=== PATIENT | male | born 1985 | race African-American/Black ===

== ENCOUNTER 2017-07-07 22:07 | Emergency (ER) | payer MEDICARE, MEDICAID ==
[2017-07-08] MEDS ORDERED: HYDROcodone/Acetaminophen 10/325 mg Tablet ONE (02:45)
--- NOTE | 2017-07-08 09:01 | RAD ---
LUMBAR SPINE 3 VIEWS: HISTORY: Low back pain. Fall. Trauma. COMPARISON: Lumbar spine radiograph 05/23/17. FINDINGS: There is fusion of the enlarged L5 transverse processes of the sacrum. No acute fracture or malalignment. Mild degenerative disk space height loss at L4-5. Right upper quadrant surgical clips are present. IMPRESSION: Lumbosacral transitional vertebra. No acute fracture or malalignment. POS: CORINE
--- OUTSIDE RECORDS SUMMARY | 2017-07-11 11:40 | XMS | Summary of Care ---
:1985 Author Name RENETTA ALISA Address Unavailable Unavailable , Care Team Providers Name Role Phone GHULAM MADDOX Unavailable Unavailable YONI ORTIZ Unavailable Unavailable ALISA JACKSON Unavailable Unavailable , Unavailable Unavailable Functional Status Functional Status Health Issues Name Dates Details Functional status health issues are not documented Status: Cognitive Status Health Issues Name Dates Details Cognitive status health issues are not documented Status: Problems Name Dates Details Depression screening(V79.0, Z13.89) Status:Active Depression with suicidal ideation(311, F32.9) Status:Active Localized swelling, mass and lump, head(784.2, R22.0) Status:Active Depression(311, F32.9) Status:Active Annual physical exam(V70.0, Z00.00) Status:Active HIV positive(V08, Z21) Status:Active Acute sinusitis(461.9, J01.90) Status:Active Allergic rhinitis(477.9, J30.9) Status:Active Headache(784.0, R51) Status:Active Medications Name Dates Details Stribild TABS Refills:0 ActiveBromfed DM 30-2-10 MG/5ML Oral Syrup TAKE 5 ML EVERY 4 TO 6 HOURS NEEDED. Quantity:1 Refills:0 YONI ORTIZ N.PMag [id number]-Ujv-5749 [id number] ML Bottle Sertraline HCl - 50 MG Oral Tablet take one tab in the morning for two weeks, then increase to one and one half tabs in the morning. Quantity:45 Refills:2 GHULAM MADDOX M.D. Dsqvdew2-Thta-6772 ActiveAmoxicillin-Pot Clavulanate 875-125 MG Oral Tablet TAKE 1 TABLET EVERY 12 HOURS WITH MEALS UNTIL GONE. Quantity:14 Refills:0 ALISA JACKSON M.D. Kbzgqvu4-Ibh-9978 ActiveLevocetirizine Dihydrochloride 5 MG Oral Tablet TAKE 1 TABLET DAILY IN THE EVENING. Quantity:30 Refills:5 ALISA JACKSON M.D. Kvljyqc8-Sgm-8886 Active Allergies and Adverse Reactions Name Dates Details Bactrim TABS Status:Active clindamycin Status:Active Doxycycline Monohydrate CAPS Status:Active Past Medical History Name Dates Details History of Ear infection(382.9, H66.90) Status:Resolved History of Otitis, right(382.9, H66.91) Status:Resolved History of Productive cough(786.2, R05) Status:Resolved No pertinent past medical history Status:Resolved Procedures Procedure Dates Details History of Gallbladder Surgery History of Kidney Surgery Laparoscopic Radical Nephrectomy [QH] DRUG SCREEN,COMPREHENSIVE (URINE) Ordered:19-Dec-2016 [QL] VITAMIN D, 25-HYDROXY, LC/MS/MS Ordered:19-Dec-2016 [Q] RESPIRATORY ALLERGY PROFILE REGION X Ordered:19-Dec-2016 [QH] HIV 1 RNA, QUANTITATIVE REAL TIME PCR Ordered:19-Dec-2016 [Q] HIV-1 GENOTYPE Ordered:19-Dec-2016 Immunization Name Dates Details Immunizations not documented Family History Mother Name Dates Details No pertinent family history Status:Active Social History Name Dates Details - Smoking StatusCurrent every day smoker Vital Signs Date Test Result Details 19-Dec-2016 10:08 BP Systolic 97mm[Hg] Status: BP Diastolic 65mm[Hg] Status: Temperature 98.3f Status: Heart Rate 85/min Status: Physical Findings 14 Status:Comments:Respiration Height 74in Status: Weight 141lb Status: Body Mass Index Calculated 18.1kg/m2 Status: Body Surface Area Calculated 1.87m2 Status: Physical Findings 100 Status:Comments:O2 Saturation Results Date Description Value Details 19-Dec-2016 [QLH] CBC (INCLUDES 11:15 DIFF/PLT) White Blood Cell 4.1 K/CMM Range: 3.7-10.4 Red Blood Cell 4.19 M/CMM (Below Range: 4.70-6.10 low threshold) Hemoglobin 12.7 g/dl (Below Range: 14.0-18.0 low threshold) Hematocrit 39.4 % (Below low Range: 42.0-54.0 threshold) Mean Cell Volume 93.9 fL Range: 80.0-94.0 Mean Cell Hemoglobin 30.3 pg Range: 27.0-31.0 Mean Cell Hemoglobin 32.3 g/dl Range: 32.0-36.0 Concentration (for H&H) Red Cell Diameter Width 13.4 % Range: 11.5-14.5 Platelet 113 K/CMM (Below Range: 133-450 low threshold) Mean Platelet Volume 10.3 fL Range: 7.4-10.4 11:15 [QLH] Differential Segmented Neutrophils 51.3 % Range: 45.0-75.0 Monocytes 8.6 % Range: 2.0-12.0 Lymphocytes 38.0 % Range: 20.0-40.0 Eosinophils 1.7 % Range: 0.0-4.0 Basophils 0.4 % Range: 0.0-1.0 Segs-Bands # 2.1 K/CMM Range: 1.5-8.1 Lymphocytes # 1.6 K/CMM Range: 1.0-5.5 Monocytes # 0.4 K/CMM Range: 0.0-0.8 Eosinophils # 0.1 K/CMM Range: 0.0-0.5 11:15 [[facility]] HEPATITIS PANEL Hepatitis B Surface Negative Range: Negative Antigen Hepatitis B Core IgM Negative Range: Negative Hepatitis C Antibody Negative Hepatitis A IgM Negative Range: Negative 11:15 [QLH] VITAMIN B12 Vitamin B12 Level 592 pg/ml Range: 254-1320 11:15 [QL] TSH, 3RD GENERATION W/REFLEX TO FT4 TSH 1.310 uIU/ml Range: 0.360-3.740 11:15 [QL] CMP W/EGFR Sodium Level 142 mEq/l Range: 135-145 Potassium Level 3.7 mEq/l Range: 3.5-5.1 Chloride Level 108 mEq/l Range: 95-109 Carbon Dioxide 27 mEq/l Range: 24-32 AGAP 10.7 mEq/l Range: 10.0-20.0 Glucose Level 78 mg/dl Range: 70-99 Comments:Adult reference range values reflect the clinical guidelinesof the [place] [employer]. Creatinine Lvl 0.90 mg/dl Range: 0.50-1.40 Blood Urea Nitrogen 9 mg/dl Range: 7-22 BUN/Creatinine Ratio 10 Range: 6-25 Total Protein 7.8 g/dl Range: 6.4-8.4 Albumin Lvl 4.3 g/dl Range: 3.5-5.0 Globulin 3.5 g/dl Range: 2.7-4.2 A/G Ratio 1.2 Range: 0.7-1.6 Calcium Level Total 8.6 mg/dl Range: 8.5-10.5 ALT 15 u/l Range: 0-65 AST 20 u/l Range: 0-37 Bilirubin Total 0.2 mg/dl Range: 0.2-1.3 Alk Phos 53 u/l Range: 39-136 eGFR 114 ML/MIN/1.7 Comments:The eGFR is calculated using the CKD-EPI formula. In most young, healthyindividuals the eGFR will be >90 mL/min/1.73m2. The eGFR declines with age. AneGFR of 60-89 may be normal in some populations , particularly the elderly, forwhom the CKD-EPI formula has not been extensively validated. Use of the eGFR isnot recommended in the following populations:Individuals with unstable creatinine concentr ations, including patients and those with serious co-morbid conditions.Patients with extremes in muscle mass or diet.The data above are obtained from the National Kidney Disease Education Prog [employer](NKDEP) which additionally recommends that when the eGFR is used in patientswith extremes of body mass index for purposes of drug dosing, the eGFR shouldbe multiplied by the estimated BMI. 11:15 [QLH] LIPID PANEL Cholesterol Total 99 mg/dl Range: <=199 Triglyceride 77 mg/dl Range: <=149 HDL Cholesterol 45 mg/dl (Below Range: >=61 low threshold) LDL 39 mg/dl Range: <=99 VLDL 15 CHD Risk 2.20 (Below low Range: 4.00-7.30 threshold) 11:15 [QLH] HEMOGLOBIN A1c Hemoglobin A1c 4.2 % Range: <=5.6 11:15 [QLH] RPR RPR Reactive Range: Non Reactive (Abnormal) 11:15 [H] RPR TITER RPR Ttr 1:4 (Abnormal) 11:40 [H] Drug Screen Urine (9 Drugs) U Amph Scr Negative Range: Negative Urine Barbiturate Screen Positive Range: Negative (Abnormal) Urine Benzodiazepine Negative Range: Negative Screen Urine Cannabinoid Screen Positive Range: Negative (Abnormal) Urine Cocaine Screen Negative Range: Negative Urine Methadone Screen Negative Range: Negative Urine Opiate Screen Negative Range: Negative Urine Phencyclidine Negative Range: Negative Screen Urine Propoxyphene Negative Range: Negative Screen Urine Drug Screen Note See Note Comments:Drugs reported as positive have not been confirmed by a secondmethod and should be used for medical purposes only. To orderconfirmation, contact laboratory.note: Below are cut-off concentrations for all urine drugs ofabuse performed in the laboratory. Some drugs listed in the tablemay not be included in this panel.Description Cut-off concentration Amphetamine 1000 ng/mLBarbiturates 200 ng/mLBenzodiazepines 200 ng/mLCocaine metabolites 300 ng/mLOpiates 300 ng/mLPhencyclidine 25 ng/mLPropoxyphene 300 ng/mLMarijuana metabolites 50 ng/mLMethadone 300 ng/mLUrine alcohol 20mg/dL 11:40 [QLH] MICROALBUMIN, RANDOM URINE (W/CREATININE) Urine Microalbumin 34.9 mg/L U Creatinine 415.00 mg/dl Comments:No established reference ranges. Urine Microalbuming 8.4 MCG/MG CRE Range: <=30.0 Creatinine Ratio 11:15 [QLH] CD4/CD8 Ratio Profile CD3 % T cell Subset 86 % (Above high Range: 55-84 threshold) CD3 T Cell # 1509 cells/uL Range: 690-2540 CD8 Supressor Cell % 41 % Range: 13-41 CD8 Supressor Cell # 784 cells/uL Range: 190-1140 CD4 [place] Cell % 40 % Range: 31-61 CD4 T [place] Cell # 760 cells/uL Range: 410-1590 Total Lymphocyte # 1763 cells/uL CD 16 56 [place] 6 % Range: 5-27 Cell % CD16 56 [place]iller 92 cells/uL Range: 90-590 Cell # CD19 B Cell % 8 % Range: 6-25 CD19 B Cell # 135 cells/uL Range: 90-660 [place] Supressor Ratio 0.97 Range: 0.90-2.30 CD4-CD8 Interp SEE NOTES Comments:No significant alteration in absolute lymphocyte counts or lymphocyte subsets.[facility] Khoa Louise MD 01/31 1:34 PM 11:15 [H] Treponema Pallidum Antibody by TP-PA T pallidum Ab Reactive Range: Non Reactive (Abnormal) 11:15 [LH] Vitamin D, 25-Hydroxy, Total* (E) Vitamin D, 25-OH, Total 15 ng/ml (Below Range: 30-100 low threshold) Comments:Reference range is based on recommendations in the [employer] Clinical Practice Guideline (J Clin Endocrinol Wbdjt2341;96 :5413-4461) 11:15 [H] HIV 1/2 Confirm HIV 1 Confirm Positive Range: Negative (Abnormal) Comments:"Significant Findings called to [phone] 3x no answer_at _12/20/201613:48_by _astrid john__.Read Back OK." HIV 2 Confirm Negative Range: Negative 11:15 [QH] HIV AB, HIV 1/2, EIA, WITH REFLEXES HIV 1/O/2 Positive Range: Negative (Abnormal) Plan of Care Planned Observations Name Dates Details Planned Goals not documented Goal Interventions Provided Medication ChangesAmoxicillin-Pot Clavulanate 875-125 MG Oral Tablet - StartCiprodex 0.3-0.1 % Otic Suspension - CompletedLevocetirizine Dihydrochloride 5 MG Oral Tablet - StartLabs/Procedures/Imaging[Q] HIV-1 GENOTYPE; To be Done: 19 Dec 2016[Q] RESPIRATORY ALLERGY PROFILE REGION X; To be Done: 19 Dec 2016[QH] DRUG SCREEN,COMPREHENSIVE (URINE); To be Done: 19 Dec 2016[QH] HIV 1 RNA, QUANTITATIVE REAL TIME PCR; To be Done: 19 Dec 2016[QL] VITAMIN D, 25-HYDROXY, LC/MS/MS; To be Done: 19 Dec 2016[H] Drug Screen Urine ( 9 Drugs); Done: 19Dec2016 11:40AM[QH] HIV AB, HIV 1/2, EIA, WITH REFLEXES; Done : 19Dec2016 11:15AM[QLH] CBC (INCLUDES DIFF/PLT); Done: 19Dec2016 11:15AM[QLH] CD4/CD8 Ratio Profile; Done: 19Dec2016 11:15AM[QLH] CMP W/EGFR; Done: [id number] 11:15AM[QLH] HEMOGLOBIN A1c; Done: [id number] 11:15AM[QLH] HEPATITIS PANEL; Done : 03Orb8388 11:15AM[QLH] LIPID PANEL; Done: [id number] 11:15AM[QLH] MICROALBUMIN , RANDOM URINE (W/CREATININE); Done: 19Dec2016 11:40AM[QL] RPR; Done: 19Dec2016 11:15AM[QL] TSH, 3RD GENERATION W/REFLEX TO FT4; Done: 19Dec2016 11: 15AM[QL] VITAMIN B12; Done: 19Dec2016 11:15AMFollow-ups/ReferralsFollow-up visit in 2 weeks; Done: 19 Dec 2016 Instructions Instructions not documented Encounters Appointment; YONI ORTIZ Encounter Diagnosis:Problem not documented 14:15 Appointment; GHULAM MADDOX [id number] Encounter Diagnosis:Problem not documented 14:30 Appointment; GHULAM MADDOX Encounter Diagnosis:Problem not documented 09:30 Appointment; YONI ORTIZ Encounter Diagnosis:Problem not documented 15:45 Appointment; YONI ORTIZ Encounter Diagnosis:Problem not documented 10:30 Appointment; YONI ORTIZ Encounter Diagnosis:Problem not documented 09:30
--- OUTSIDE RECORDS SUMMARY | 2017-07-11 11:41 | XMS | Summary of Care ---
:1985 Author Name Chinyere Goldman Address Unavailable Unavailable , Care Team Providers Name Role Phone GHULAM MADDOX Unavailable Unavailable YONI ORTIZ Unavailable Unavailable , Unavailable Unavailable Functional Status Functional Status Health Issues Name Dates Details Functional status health issues are not documented Status: Cognitive Status Health Issues Name Dates Details Cognitive status health issues are not documented Status: Problems Name Dates Details Depression screening(V79.0, Z13.89) Status:Active Depression with suicidal ideation(311, F32.9) Status:Active Ear infection(382.9, H66.90) Status:Active Otitis, right(382.9, H66.91) Status:Active Localized swelling, mass and lump, head(784.2, R22.0) Status:Active Productive cough(786.2, R05) Status:Active Depression(311, F32.9) Status:Active Medications Name Dates Details Stribild TABS Refills:0 , M.A.ActiveCiprodex 0.3-0.1 % Otic Suspension INSTILL 3 DROPS IN AFFECTED EAR(S) TWICE DAILY. Quantity:1 Refills:0 ANGEL, SHIFAT N.P. [id number]-[id number] ActiveBromfed DM 30-2-10 MG/5ML Oral Syrup TAKE 5 ML EVERY 4 TO 6 HOURS NEEDED. Quantity:1 Refills:0 ANGLE, YONI N.P. Itnkvhb61-Crm-8197 Zmrfld611 ML Bottle Sertraline HCl - 50 MG Oral Tablet take one tab in the morning for two weeks, then increase to one and one half tabs in the morning. Quantity:45 Refills:2 GHULAM MADDOX M.D. Etvtmnr7-Ocwb-1309 Active Allergies and Adverse Reactions Name Dates Details Bactrim TABS Status:Active clindamycin Status:Active Doxycycline Monohydrate CAPS Status:Active Past Medical History Name Dates Details No pertinent past medical history Status:Resolved Procedures Procedure Dates Details History of Gallbladder Surgery History of Kidney Surgery Laparoscopic Radical Nephrectomy Procedures not documented Immunization Name Dates Details Immunizations not documented Family History Mother Name Dates Details No pertinent family history Status:Active Social History Name Dates Details - Smoking StatusCurrent every day smoker Vital Signs Date Test Result Details 09:38 BP Systolic 95mm[Hg] Status: BP Diastolic 63mm[Hg] Status: Temperature 98.1f Status: Heart Rate 74/min Status: Height 74in Status: Weight 135lb Status: Body Mass Index Calculated 17.33kg/m2 Status: Body Surface Area Calculated 1.84m2 Status: Physical Findings 98 Status:Comments:O2 Saturation Results Date Description Value Details Results not documented Plan of Care Planned Observations Name Dates Details Planned Goals not documented Goal Planned Encounters Appointment; Provider: GHULAM MADDOX [id number] 14:30 Instructions Instructions not documented Encounters Appointment; GHULAM MADDOX [id number] Encounter Diagnosis:Problem not documented 09:30 Appointment; YONI ORTIZ [id number] Encounter Diagnosis:Problem not documented 15:45 Appointment; YONI ORTIZ Encounter Diagnosis:Problem not documented 10:30 Appointment; YONI ORTIZ Encounter Diagnosis:Problem not documented 09:30
--- OUTSIDE RECORDS SUMMARY | 2017-07-11 11:41 | XMS | Summary of Care ---
:1985 Author Name GHULAM MADDOX Address Unavailable Unavailable , Care Team Providers [...] Medications Name Dates Details Stribild TABS Refills:0 ActiveCiprodex 0.3-0.1 % Otic Suspension INSTILL 3 DROPS IN AFFECTED EAR(S) TWICE DAILY. Quantity:1 Refills:0 ANGEL, YONI N.P. Yzrhuaf43-Vwn-3663 ActiveBromfed DM 30-2-10 MG/5ML Oral Syrup TAKE 5 ML EVERY 4 TO 6 HOURS NEEDED. Quantity:1 Refills:0 YONI ORTIZ N.P. Riyjrpt51-Ugh-2818 Ziurtw452 ML Bottle Sertraline HCl - 50 MG Oral Tablet take one tab in the morning for two weeks, then increase to one and one half tabs in the morning. Quantity:45 Refills:2 GHULAM MADDOX M.D. Jsblevm5-Dvti-7407 Active Allergies and Adverse Reactions Name Dates [...] Goal Planned Encounters Appointment; Provider: GHULAM MADDOX [id number] 14:30 Interventions Provided Medication ChangesSertraline HCl - 50 MG Oral Tablet - StartPlan Section DataPlan Section: Details from Note:Discussed diagnosis, differential diagnosis , co morbidities, bio psychosocial factors, predisposing, precipitating and maintaining symptoms Start on Zoloft 75 mg qam. Instructions Instructions not documented Encounters Appointment; YONI ORTIZ Encounter Diagnosis:Problem not documented 15:45 Appointment; YONI ORTIZ Encounter Diagnosis:Problem not documented 10:30 Appointment; YONI ORTIZ Encounter Diagnosis:Problem not documented 09:30
--- OUTSIDE RECORDS SUMMARY | 2017-07-11 11:41 | XMS | Summary of Care ---
:1985 Author Name Ashlie Reynoso Address Unavailable Unavailable , Care Team Providers [...] IN AFFECTED EAR(S) TWICE DAILY. Quantity:1 Refills:0 ORTIZ, SHIFAT N.P. Jdcznib53-Rgk-5243 ActiveBromfed DM 30-2-10 MG/5ML Oral Syrup TAKE 5 ML EVERY 4 TO 6 HOURS NEEDED. Quantity:1 Refills:0 ANGEL, SHIFAT N.P. Amqwoda80-Cmn-7702 Ewijuk353 ML Bottle Sertraline HCl - 50 MG Oral Tablet take one tab in the morning for two weeks, then increase to one and one half tabs in the morning. Quantity:45 Refills:2 GHULAM MADDOX M.D. Nxsxjuj5-Rlau-9656 Active Allergies and Adverse Reactions Name Dates [...] smoker Vital Signs Date Test Result Details No Known Vitals to report Results Date Description Value Details Results not documented Plan of Care Planned Observations Name Dates Details Planned Goals not documented Goal Planned Encounters Appointment; Provider: ALISA JACKSON 10:00 Instructions Instructions not documented Encounters Appointment; YONI ORTIZ Encounter Diagnosis:Problem not documented 14:15 Appointment; GHULAM MADDOX Encounter Diagnosis:Problem not documented 14:30 Appointment; GHULAM MADDOX Encounter Diagnosis:Problem not documented 09:30 Appointment; OYNI ORTIZ Encounter Diagnosis:Problem not documented 15:45 Appointment; YONI ORTIZ Encounter Diagnosis:Problem not documented 10:30 Appointment; YONI ORTIZ Encounter Diagnosis:Problem not documented 09:30
--- OUTSIDE RECORDS SUMMARY | 2017-07-11 11:41 | XMS | Summary of Care ---
[...] TWICE DAILY. Quantity:1 Refills:0 ORTIZ, SHIFAT N.P. Zicqcaw74-Ixo-7909 ActiveBromfed DM 30-2-10 MG/5ML Oral Syrup TAKE 5 ML EVERY 4 TO 6 HOURS NEEDED. Quantity:1 Refills:0 ANGEL, SHIFAT N.P. Ciobhdo01-Bet-8253 [id number] ML Bottle Sertraline HCl - 50 MG Oral Tablet take one tab in the morning for two weeks, then increase to one and one half tabs in the morning. Quantity:45 Refills:2 GHULAM MADDOX M.D. Xfktgze3-Kene-2616 Active Allergies and Adverse Reactions Name Dates [...]
--- OUTSIDE RECORDS SUMMARY | 2017-07-11 11:41 | XMS | Summary of Care ---
[...] TWICE DAILY. Quantity:1 Refills:0 ORTIZ, SHIFAT N.P. Wibjkwg26-Dhg-0937 ActiveBromfed DM 30-2-10 MG/5ML Oral Syrup TAKE 5 ML EVERY 4 TO 6 HOURS NEEDED. Quantity:1 Refills:0 ANGEL, SHIFAT N.P. Cwjbvde04-Gca-7307 Jvztfq329 ML Bottle Sertraline HCl - 50 MG Oral Tablet take one tab in the morning for two weeks, then increase to one and one half tabs in the morning. Quantity:45 Refills:2 GHULAM MADDOX M.D. Fxmcfek3-Hmmg-9477 Active Allergies and Adverse Reactions Name Dates [...]
--- OUTSIDE RECORDS SUMMARY | 2017-07-11 11:41 | XMS | Summary of Care ---
:1985 Author Name Brandy Goss Address Unavailable Unavailable , Care Team Providers [...] TWICE DAILY. Quantity:1 Refills:0 ANGEL, SHIFAT N.P. [id number]-Xrk-2177 ActiveBromfed DM 30-2-10 MG/5ML Oral Syrup TAKE 5 ML EVERY 4 TO 6 HOURS NEEDED. Quantity:1 Refills:0 ANGEL, ALENAAT N.P. Tjdufht89-Tzv-8131 Gdhxvc686 ML Bottle Sertraline HCl - 50 MG Oral Tablet take one tab in the morning for two weeks, then increase to one and one half tabs in the morning. Quantity:45 Refills:2 GHULAM MADDOX M.D. Fazgsmf1-Bjip-5310 Active Allergies and Adverse Reactions Name Dates [...] Dates Details Planned Goals not documented Goal Instructions Instructions not documented Encounters Appointment; YONI ORTIZ [id number] Encounter Diagnosis:Problem not documented 14:15 Appointment; GHULAM MADDOX [id number]-[id number] Encounter Diagnosis:Problem not documented 14:30 Appointment; GHULAM MADDOX [id number]-[id number] Encounter Diagnosis:Problem not documented 09:30 Appointment; YONI ORTIZ Encounter Diagnosis:Problem not documented 15:45 Appointment; YONI ORTIZ Encounter Diagnosis:Problem not documented 10:30 Appointment; YONI ORTIZ Encounter Diagnosis:Problem not documented 09:30
--- OUTSIDE RECORDS SUMMARY | 2017-07-11 11:41 | XMS | Summary of Care ---
[...] TWICE DAILY. Quantity:1 Refills:0 ANGEL, YONI N.P. [id number]-[id number] ActiveBromfed DM 30-2-10 MG/5ML Oral Syrup TAKE 5 ML EVERY 4 TO 6 HOURS NEEDED. Quantity:1 Refills:0 YONI ORTIZ N.P. Qgpvvcs01-Akr-9614 [id number] ML Bottle Sertraline HCl - 50 MG Oral Tablet take one tab in the morning for two weeks, then increase to one and one half tabs in the morning. Quantity:45 Refills:2 GHULAM MADDOX M.D. Xmuhjtl3-Psrq-4274 Active Allergies and Adverse Reactions Name Dates [...] Goals not documented Goal Interventions Provided Medication ChangesSertraline HCl - 50 MG Oral Tablet - Renew Instructions Instructions not documented Encounters Appointment; GHULAM MADDOX Encounter Diagnosis:Problem not documented 14:30 Appointment; GHULAM MDADOX Encounter Diagnosis:Problem not documented 09:30 Appointment; YONI ORTIZ Encounter Diagnosis:Problem not documented 15:45 Appointment; YONI ORTIZ Encounter Diagnosis:Problem not documented 10:30 Appointment; YONI ORTIZ Encounter Diagnosis:Problem not documented 09:30
--- OUTSIDE RECORDS SUMMARY | 2017-07-11 11:41 | XMS | Summary of Care ---
:1985 Author Name Cherry Shah Address Unavailable Unavailable , Care Team Providers Name Role Phone GHULAM MADDOX Unavailable Unavailable Cherry Shah Unavailable Unavailable YONI ORTIZ Unavailable Unavailable ALISA [...] HOURS NEEDED. Quantity:1 Refills:0 YONI ORTIZ N.P. Qyifsrh05-Obm-2869 [id number] ML Bottle Sertraline HCl - 50 MG Oral Tablet take one tab in the morning for two weeks, then increase to one and one half tabs in the morning. Quantity:45 Refills:2 GHULAM MADDOX M.D. Rfkflzw9-Bbbb-7886 ActiveAmoxicillin-Pot Clavulanate 875-125 MG Oral Tablet TAKE 1 TABLET EVERY 12 HOURS WITH MEALS UNTIL GONE. Quantity:14 Refills:0 ALISA JACKSON M.D. Iizswrm3-Dei-9742 ActiveLevocetirizine Dihydrochloride 5 MG Oral Tablet TAKE 1 TABLET DAILY IN THE EVENING. Quantity:30 Refills:5 ALISA JACKSON M.D. Orxuijj3-Bne-6400 Active Allergies and Adverse Reactions Name Dates [...] Radical Nephrectomy [QH] DRUG SCREEN,COMPREHENSIVE (URINE) Ordered:19-Dec-2016 [H] Drug Screen Urine (9 Drugs) Ordered:19-Dec-2016 [QLH] CBC (INCLUDES DIFF/PLT) Ordered:19-Dec-2016 [QLH] CMP W/EGFR Ordered:19-Dec-2016 [QL] VITAMIN D, 25-HYDROXY, LC/MS/MS Ordered:19-Dec-2016 [Q] RESPIRATORY ALLERGY PROFILE REGION X Ordered:19-Dec-2016 [QLH] VITAMIN B12 Ordered:19-Dec-2016 [QLH] TSH, 3RD GENERATION W/REFLEX TO FT4 Ordered:19-Dec-2016 [QLH] RPR Ordered:19-Dec-2016 [QLH] MICROALBUMIN, RANDOM URINE (W/CREATININE) Ordered:19-Dec-2016 [QLH] LIPID PANEL Ordered:19-Dec-2016 [QLH] HEPATITIS PANEL Ordered:19-Dec-2016 [QLH] HEMOGLOBIN A1c Ordered:19-Dec-2016 [QH] HIV AB, HIV 1/2, EIA, WITH REFLEXES Ordered:19-Dec-2016 [QH] HIV 1 RNA, QUANTITATIVE REAL TIME PCR Ordered:19-Dec-2016 [Q] HIV-1 GENOTYPE Ordered:19-Dec-2016 [QLH] CD4/CD8 Ratio Profile Ordered:19-Dec-2016 Immunization Name Dates Details Immunizations not [...] Planned Goals not documented Goal Interventions Provided Follow-ups/ReferralsNeurology Referral; To be Done: 19 Dec 2016 Instructions Instructions not documented Encounters Appointment; ALISA JACKSON Encounter Diagnosis:Problem not documented 10:00 Appointment; YONI ORTIZ Encounter Diagnosis:Problem not documented 14:15 Appointment; GHULAM MADDOX [id number] Encounter Diagnosis:Problem not documented 14:30 Appointment; GHULAM MADDOX [id number] Encounter Diagnosis:Problem not documented 09:30 Appointment; YONI ORTIZ Encounter Diagnosis:Problem not documented 15:45 Appointment; YONI ORTIZ Encounter Diagnosis:Problem not documented 10:30 Appointment; YONI ORTIZ Encounter Diagnosis:Problem not documented 09:30
== END 2017-07-08 02:47 | disposition home or self-care (01) ==
LOC: MERGE 22:07 → ERS 22:07
DX: M54.5 Low back pain (principal); F17.210 Nicotine dependence, cigarettes, uncomplicated; Z79.899 Other long term (current) drug therapy
CPT/HCPCS: 72100

== ENCOUNTER 2018-04-02 13:09 | Emergency (ER) | payer MEDICARE, MEDICAID ==
[2018-04-02] MEDS ORDERED: Methocarbamol 500 MG TAB PO SCH (13:45)
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
== END 2018-04-02 14:38 | disposition home or self-care (01) ==
LOC: ERS 13:09
DX: M54.2 Cervicalgia (principal); M54.9 Dorsalgia, unspecified; F32.9 Major depressive disorder, single episode, unspecified; Z87.891 Personal history of nicotine dependence
CPT/HCPCS: 72100

== ENCOUNTER 2018-05-18 12:13 | Emergency (ER) | payer MEDICARE, MEDICAID ==
[2018-05-18] MEDS ORDERED: Dexamethasone 4 MG TAB ONE ×2 (13:29→13:30)
== END 2018-05-18 13:26 | disposition home or self-care (01) ==
LOC: ERS 12:13
DX: J02.9 Acute pharyngitis, unspecified (principal); F32.9 Major depressive disorder, single episode, unspecified; Z87.891 Personal history of nicotine dependence; Z79.899 Other long term (current) drug therapy
CPT/HCPCS: 87081; 87430; 99283; J8540

== ENCOUNTER 2018-06-27 15:14 | Emergency (ER) | payer MEDICARE, MEDICAID | END 2018-06-27 16:05 | disposition home or self-care (01) | LOC: ERS 15:14 | DX: M54.5 Low back pain (principal); G89.29 Other chronic pain; B20 Human immunodeficiency virus [HIV] disease; F31.9 Bipolar disorder, unspecified; F41.9 Anxiety disorder, unspecified; Z87.891 Personal history of nicotine dependence | CPT/HCPCS: 99283 ==

== ENCOUNTER 2018-09-01 14:22 | Emergency (ER) | payer MEDICARE, MEDICAID | END 2018-09-01 15:40 | disposition home or self-care (01) | LOC: ERS 14:22 | DX: M79.10 Myalgia, unspecified site (principal); K59.00 Constipation, unspecified; B20 Human immunodeficiency virus [HIV] disease; F41.9 Anxiety disorder, unspecified; F31.9 Bipolar disorder, unspecified; Z87.891 Personal history of nicotine dependence; Z79.899 Other long term (current) drug therapy | CPT/HCPCS: 99283 ==

== ENCOUNTER 2019-05-08 09:20 | Emergency (ER) | payer MEDICARE, MEDICAID ==
--- NOTE | 2019-05-08 09:37 | RAD ---
Exam:3 views left ankle HISTORY: Pain. COMPARISON: 08/08/2010 FINDINGS: Joint spaces are preserved. No fracture. No significant swelling. IMPRESSION: Unremarkable 3 views left ankle
== END 2019-05-08 09:52 | disposition home or self-care (01) ==
LOC: ERS 09:20
DX: M25.572 Pain in left ankle and joints of left foot (principal)

== ENCOUNTER 2019-05-25 17:03 | Emergency (ER) | payer MEDICARE ==
--- NOTE | 2019-05-25 18:01 | CT ---
EXAM: CT brain without contrast HISTORY: Right-sided numbness for months COMPARISON: 04/04/2017 TECHNIQUE: Multiple contiguous axial images were obtained and a CT of the brain without contrast. FINDINGS: The brain is normal in morphology and attenuation without focal lesions or confluent areas of infarction. There is no evidence of hydrocephalus, intracranial hemorrhage, or extra-axial fluid collection. The calvarium and overlying soft tissues are unremarkable. The visualized paranasal sinuses and masto id air cells are well aerated. IMPRESSION: No evidence of acute intracranial abnormality
== END 2019-05-25 18:11 | disposition home or self-care (01) ==
LOC: ERS 17:03
DX: R20.2 Paresthesia of skin (principal)
CPT/HCPCS: 70450

== ENCOUNTER 2019-05-28 08:59 | Outpatient (CLI) | payer MEDICARE ==
--- NOTE | 2019-05-28 09:47 | CT ---
CT abdomen and pelvis with IV contrast. Oral contrast was administered. INDICATIONS: Splenic cysts COMPARISON: CT abdomen pelvis 11/10/2014 FINDINGS: Lung bases are clear Liver is unremarkable. Postcholecystectomy changes noted. Splenic cystic lesions are again noted. The largest cystic lesion measures 7 to 8 cm and is stable in appearance. There are numerous smaller cystic lesions more inferior to the larger lesion, all of which appear stable from the prior study. Calcification within the wall of these smaller cystic lesio ns have increased since prior exam. Pancreas unremarkable Stomach and duodenum appear unremarkable. Adrenal glands appear normal. Kidneys appear unremarkable. Collecting structures and urinary bladder appear unremarkable. Small bowel loops are normal caliber and exhibit normal fold pattern. Appendix is identified and appears unremarkable. Stool throughout the colon with scattered diverticula. Aorta is normal caliber. No evidence of retroperitoneal or mesenteric adenopathy. Pelvic structures appear unremarkable. Subcutaneous tissues, abdominal wall, and muscular structures appear unremarkable. Osseous structures appear unremarkable. IMPRESSION: Splenic cysts appear stable from prior exam.
[2019-05-28] MEDS ORDERED: Iopamidol 370 76% 100 ML VIAL ONE (11:11)
== END 2019-05-28 09:00 | disposition home or self-care (01) ==
LOC: CT 08:59
PROVIDERS: ATTEND Specialist
DX: D73.4 Cyst of spleen (principal)
CPT/HCPCS: 74177; Q9967

== ENCOUNTER 2019-08-18 12:11 | Emergency (ER) | payer MEDICARE ==
[2019-08-18] MEDS ORDERED: Acetaminophen 500 MG TAB ONE (13:55)
--- NOTE | 2019-08-18 14:06 | RAD ---
EXAM: Chest Two Views 08/18/2019 2:03 PM HISTORY: Cough COMPARISON: April 04, 2017 FINDINGS: Heart: Normal in size and contour. Pulmonary vessels: Normal. Costophrenic angles: Clear. Lungs: Hyperinflated but clear Pneumothorax: None. Osseous structures:Intact. Additional findings: None. IMPRESSION: No significant acute intrathoracic disease.
== END 2019-08-18 14:52 | disposition home or self-care (01) ==
LOC: ERS 12:11
DX: R05 Cough (principal); F17.210 Nicotine dependence, cigarettes, uncomplicated; Z79.899 Other long term (current) drug therapy
CPT/HCPCS: 71046

== ENCOUNTER 2019-10-14 17:05 | Emergency (ER) | payer MEDICARE, MEDICAID | END 2019-10-14 17:56 | disposition home or self-care (01) | LOC: ERS 17:05 | DX: G89.29 Other chronic pain (principal); M54.5 Low back pain; R05 Cough; R09.81 Nasal congestion | CPT/HCPCS: 99281 ==

== ENCOUNTER 2019-12-09 20:05 | Emergency (ER) | payer MEDICARE, MEDICAID | END 2019-12-09 20:17 | disposition home or self-care (01) | LOC: ERS 20:05 | DX: Z04.3 Encounter for examination and observation following other accident (principal); Z87.891 Personal history of nicotine dependence | CPT/HCPCS: 99281 ==

== ENCOUNTER 2021-06-08 13:04 | Emergency (ER) | payer MEDICARE, MEDICAID ==
[2021-06-08] MEDS ORDERED: Ketorolac Tromethamine 30 MG/ML VIAL ONE (14:19)
== END 2021-06-08 14:46 | disposition home or self-care (01) ==
LOC: ERS 13:04
DX: M54.41 Lumbago with sciatica, right side (principal); G89.29 Other chronic pain; K80.20 Calculus of gallbladder without cholecystitis without obstruction; B20 Human immunodeficiency virus [HIV] disease; Z87.891 Personal history of nicotine dependence
CPT/HCPCS: 96372; 99283; J1885

== ENCOUNTER 2021-08-13 17:44 | Emergency (ER) | payer MEDICARE, MEDICAID ==
[2021-08-13] MEDS ORDERED: HYDROcodone/Acetaminophen 5/325 mg Tablet ONE (18:04)
== END 2021-08-13 18:54 ==
LOC: ERS 17:44
DX: M54.12 Radiculopathy, cervical region (principal); Z21 Asymptomatic human immunodeficiency virus [HIV] infection status; Z87.891 Personal history of nicotine dependence

== ENCOUNTER 2021-10-22 17:03 | Emergency (ER) | payer MEDICARE, OTHER ==
[2021-10-22] MEDS ORDERED: Dexamethasone 10 MG/ML VIAL ONE (18:38)
== END 2021-10-22 18:44 | disposition home or self-care (01) ==
LOC: ERS 17:03
DX: J02.0 Streptococcal pharyngitis (principal); R13.10 Dysphagia, unspecified; B20 Human immunodeficiency virus [HIV] disease; Z79.899 Other long term (current) drug therapy
CPT/HCPCS: 99283; J1100

== ENCOUNTER 2021-11-05 06:25 | Observation (INO) | payer MEDICARE, MEDICAID ==
[2021-11-05] MEDS ORDERED: Ondansetron PF 4 MG/2 ML Vial ONE (07:35)
[2021-11-05] MEDS ORDERED: Morphine 4 MG/ML VIAL ONE ×2 (07:35→11:17)
[2021-11-05] MEDS ORDERED: methylPREDNISolone Sod Succ 40 MG VIAL ONE ×2 (08:01→08:02)
[2021-11-05] MEDS ORDERED: Famotidine/PF 20 mg/2ml Vial ONE (08:01)
[2021-11-05 08:04] LABS: #Basophils 0.1 thou/uL (0.0-0.2); #Eosinphils 0.1 thou/uL (0.0-0.7); #Lymphocytes 2.2 thou/uL (1.20-3.40); #Monocytes 0.7 thou/uL (0.11-0.59); %Basophils 0.8 % (0.0-1.0); %Eosinophils 0.6 % (0.0-10.0); %Lymphocytes 22.3 % (21.0-51.0); %Monocytes 6.5 % (0.0-10.0); %Neutrophils 69.8 % (42.0-75.0); Mean Corpuscular HGB CONC 31.5 g/dL (32.0-36.0); Mean Corpuscular Hemoglobin 30.2 pg (27.0-31.0); Mean Platelet Volume 7.6 fL (7.4-10.4); Platelet Count 161 thou/uL (130-400); RBC Distribution Width 10.9 % (11.5-14.5); White Blood Cell (WBC) Count 10.1 thou/uL (4.8-10.8)
[2021-11-05 08:23] LABS: ALT (SGPT) Less than 7 U/L (8-55); AST (SGOT) 12 U/L (5-34); Albumin 4.3 g/dL (3.5-5.0); Alkaline Phosphatase 50 U/L (40-110); Anion Gap 16 mmol/L (10-20); BUN (Urea Nitrogen) 12 mg/dL (8.9-20.6); Bilirubin, Total 0.7 mg/dL (0.2-1.2); Calc. Creatinine Clearance 0 mL/min (70-130); Calcium 9.4 mg/dL (7.8-10.44); Carbon Dioxide 21 mmol/L (22-29); Chloride 103 mmol/L (98-107); Globulin 4.2 g/dL (2.4-3.5); Glucose 93 mg/dL (70-105); Potassium 3.3 mmol/L (3.5-5.1); Protein, Total 8.5 g/dL (6.0-8.3); Sodium 137 mmol/L (136-145)
[2021-11-05] MEDS ORDERED: Lidocaine 4% Topical Sol 50 ML BOT ONE (09:43)
[2021-11-05] MEDS ORDERED: Benzocaine 20% Spray 60 ML CAN ONE (09:43)
[2021-11-05] MEDS ORDERED: Iopamidol 370 76% 100 ML VIAL ONE (09:43)
[2021-11-05] MEDS ORDERED: Midazolam HCl 2 mg/2 ml Vial ONE (09:43)
[2021-11-05 09:51] LABS: Acetaminophen Less than 6.0 mcg/mL (10.0-30.0); Alcohol Less than 10 mg/dL (Less than 10); Salicylate Less than 8.0 mg/dL (15.0-30.0)
[2021-11-05] MEDS ORDERED: Clindamycin/D5W 600 mg/50 ml Premix Bag ONE (11:17)
[2021-11-05] MEDS ORDERED: Promethazine HCl 12.5 MG in Sodium Chloride 0.9% 50 ML IVPB PRN (11:54)
[2021-11-05] MEDS ORDERED: Morphine 2 MG/ML VIAL SLOW IVP PRN (12:08)
[2021-11-05] MEDS ORDERED: Methocarbamol 1 GM in Sodium Chloride 0.9% 100 ML IVPB PRN (12:11)
[2021-11-05] MEDS ORDERED: Dexamethasone 10 MG/ML VIAL ONE (12:51)
[2021-11-05 14:27] VITALS: BMI 19.8
[2021-11-05] MEDS: Sodium Chloride 0.9% 1,000 ML IV SCH (14:36)
[2021-11-05] MEDS: Potassium Chloride 20 MEQ in Premix Bag 1 BAG IVPB SCH (17:31)
[2021-11-05] MEDS: Clindamycin/D5W 900 MG in Premix Bag 1 BAG IVPB SCH (21:19)
[2021-11-05] MEDS: Dexamethasone 10 MG in Sodium Chloride 0.9% 50 ML IVPB SCH (21:20)
[2021-11-05 23:37] LABS: SARS-CoV-2 PCR by NAA Not Detected (NotDetected)
[2021-11-06] MEDS: Sodium Chloride 0.9% 1,000 ML IV SCH ×3 (00:24→18:41)
[2021-11-06] MEDS: Potassium Chloride 20 MEQ in Premix Bag 1 BAG IVPB SCH (00:33)
[2021-11-06] MEDS: Clindamycin/D5W 900 MG in Premix Bag 1 BAG IVPB SCH ×3 (04:50→21:28)
[2021-11-06] MEDS: Morphine 4 MG/ML VIAL SLOW IVP PRN (08:13)
[2021-11-06] MEDS: DULoxetine 60 MG CAP PO SCH (08:15)
[2021-11-06] MEDS: Gabapentin 300 MG CAP PO SCH ×2 (08:15→21:29)
[2021-11-06] MEDS: Dexamethasone 10 MG in Sodium Chloride 0.9% 50 ML IVPB SCH ×2 (09:31→21:28)
[2021-11-06] MEDS ORDERED: Lidocaine 1% w/Epinephrine 1:100K 20 ML VIAL FS SCH (12:45)
[2021-11-07] MEDS: Clindamycin/D5W 900 MG in Premix Bag 1 BAG IVPB SCH ×2 (04:45→12:44)
[2021-11-07] MEDS: Sodium Chloride 0.9% 1,000 ML IV SCH ×2 (06:25→07:00)
[2021-11-07] MEDS: Dexamethasone 10 MG in Sodium Chloride 0.9% 50 ML IVPB SCH (09:02)
[2021-11-07] MEDS: Gabapentin 300 MG CAP PO SCH (09:03)
[2021-11-07] MEDS: DULoxetine 60 MG CAP PO SCH (09:03)
[2021-11-07] MEDS: Morphine 4 MG/ML VIAL SLOW IVP PRN (09:10)
[2021-11-07 14:51] VITALS: BP 96/66; TEMP 98.3
[2021-11-07 17:09] LABS: %CD4 (Helper/Inducer) 22.1 % (30.8-58.5); Absolute CD4 199 /uL (359-1519); Lymphocytes/Gated Cell Count 0.9 x10E3/uL (0.7-3.1); Total Lymphocyte 9 % (Not Estab.); WBC Total Count 10.1 x10E3/uL (3.4-10.8)
[2021-11-08 21:12] LABS: LOG10 HIV-1 RNA 2.114 (.)
== END 2021-11-07 15:11 | disposition home or self-care (01) ==
LOC: ERS 06:25 → SUATTDRO 06:25 → T4-A 11:43
PROVIDERS: ADMIT Internal Medicine; ATTEND Internal Medicine
DX: J36 Peritonsillar abscess (principal); K02.9 Dental caries, unspecified; K04.7 Periapical abscess without sinus; E87.6 Hypokalemia; F17.200 Nicotine dependence, unspecified, uncomplicated; J35.2 Hypertrophy of adenoids; F12.10 Cannabis abuse, uncomplicated; F14.10 Cocaine abuse, uncomplicated; Z21 Asymptomatic human immunodeficiency virus [HIV] infection status; Z60.9 Problem related to social environment, unspecified; Z79.891 Long term (current) use of opiate analgesic; Z79.899 Other long term (current) drug therapy; Z88.0 Allergy status to penicillin; Z88.1 Allergy status to other antibiotic agents; Z88.2 Allergy status to sulfonamides; Z88.6 Allergy status to analgesic agent; Z88.8 Allergy status to other drugs, medicaments and biological substances; Z91.041 Radiographic dye allergy status; Z20.822 Contact with and (suspected) exposure to COVID-19
CPT/HCPCS: 70491; 80307; 83605; 85048; 86361; 87536; 96365; 96376; G0378 ×3; U0003; U0005; 36415; 80053; 84443; 85025; J1100; J2250; J2270; J2405; J2800; J2920; J3480; J3490; J7050; Q9967; S0028

== ENCOUNTER 2022-03-01 13:54 | Emergency (ER) | payer MEDICARE, OTHER, MEDICAID ==
[2022-03-01] MEDS ORDERED: Acetaminophen 325 MG TAB ONE (14:20)
== END 2022-03-01 15:25 | disposition home or self-care (01) ==
LOC: ERS 13:54
DX: M25.561 Pain in right knee (principal); Z21 Asymptomatic human immunodeficiency virus [HIV] infection status; M19.90 Unspecified osteoarthritis, unspecified site; Z79.899 Other long term (current) drug therapy; W55.32XA Struck by other hoof stock, initial encounter

== ENCOUNTER 2022-04-08 18:13 | Emergency (ER) | payer MEDICARE, OTHER ==
[2022-04-08] MEDS ORDERED: Acetaminophen 500 MG TAB ONE (18:29)
== END 2022-04-08 18:38 | disposition home or self-care (01) ==
LOC: ERS 18:13
DX: M25.561 Pain in right knee (principal)
CPT/HCPCS: 99283

== ENCOUNTER → 2022-12-29 | Emergency (ER) | payer MEDICARE, OTHER | LOC: ERS 16:58 | DX: Z53.21 Procedure and treatment not carried out due to patient leaving prior to being seen by health care provider (principal) | CPT/HCPCS: 71045 ==

== ENCOUNTER 2023-11-23 20:56 | Emergency (ER) | payer MEDICARE, MEDICAID ==
[2023-11-23 22:52] LABS: #Monocytes 0.5 thou/uL (0.11-0.59); #Neutrophils 3.3 thou/uL (1.40-6.50); %Basophils 0.5 % (0.0-1.0); %Eosinophils 0.7 % (0.0-10.0); %Lymphocytes 35.1 % (21.0-51.0); %Monocytes 8.1 % (0.0-10.0); %Neutrophils 55.3 % (42.0-75.0); Hematocrit 39.2 % (42.0-52.0); Hemoglobin 12.5 g/dL (14.0-18.0); Mean Corpuscular HGB CONC 31.9 g/dL (32.0-36.0); Mean Corpuscular Hemoglobin 30.1 pg (27.0-31.0); Mean Corpuscular Volume 94.5 fl (78.0-98.0); Mean Platelet Volume 9.9 fL (7.4-10.4); Platelet Count 214 10x3/uL (130-400); RBC Distribution Width 11.6 % (11.5-14.5); Red Blood Cell (RBC) Count 4.15 mill/uL (4.70-6.10); White Blood Cell (WBC) Count 5.9 10x3/uL (4.8-10.8)
[2023-11-23 23:10] LABS: ALT (SGPT) 11 U/L (8-55); AST (SGOT) 22 U/L (5-34); Albumin 4.6 g/dL (3.5-5.0); Alkaline Phosphatase 58 U/L (40-110); Anion Gap 14 mmol/L (10-20); BUN (Urea Nitrogen) 11 mg/dL (8.9-20.6); Bilirubin, Total 0.7 mg/dL (0.2-1.2); Calc. Creatinine Clearance 0 mL/min (70-130); Calcium 9.7 mg/dL (7.8-10.44); Carbon Dioxide 26 mmol/L (22-29); Chloride 105 mmol/L (98-107); Estimated GFR 89; Globulin 3.5 g/dL (2.4-3.5); Glucose 95 mg/dL (70-105); Lipase 19 U/L (8-78); Potassium 3.9 mmol/L (3.5-5.1); Protein, Total 8.1 g/dL (6.0-8.3); Sodium 141 mmol/L (136-145)
[2023-11-23 23:13] LABS: Troponin I Less than 0.010 ng/mL (< 0.028)
== END 2023-11-23 23:52 | disposition home or self-care (01) ==
LOC: ERS 20:56
DX: R07.89 Other chest pain (principal); F17.210 Nicotine dependence, cigarettes, uncomplicated; F12.10 Cannabis abuse, uncomplicated; Z55.6 Problems related to health literacy; Z86.73 Personal history of transient ischemic attack (TIA), and cerebral infarction without residual deficits
CPT/HCPCS: 36415; 71045; 80053; 83690; 84484; 85025; 93005; 94760

== ENCOUNTER 2024-01-23 11:19 | Emergency (ER) | payer MEDICARE, MEDICAID | END 2024-01-23 16:29 | disposition home or self-care (01) | LOC: ERS 11:19 | DX: B20 Human immunodeficiency virus [HIV] disease (principal); Z20.2 Contact with and (suspected) exposure to infections with a predominantly sexual mode of transmission; F17.210 Nicotine dependence, cigarettes, uncomplicated | CPT/HCPCS: 36415; 80053; 85025; 86593; 86780; 96372; 99283; J0696 ==